=== PATIENT | female | born 1935 | race Caucasian/White ===

== ENCOUNTER 2018-11-06 09:48 | Outpatient (CLI) | payer OTHER | END 2018-11-06 09:57 | disposition home or self-care (01) | LOC: TOM 09:48 | DX: M25.512 Pain in left shoulder (principal); M79.641 Pain in right hand ==

== ENCOUNTER 2019-08-13 09:00 | Day surgery (SDC) | payer OTHER | END 2019-08-13 15:05 | disposition home or self-care (01) | LOC: AMB-ENDOS 09:00 | DX: C20 Malignant neoplasm of rectum (principal); K64.1 Second degree hemorrhoids ==

== ENCOUNTER 2021-12-18 10:42 | Outpatient (CLI) | payer OTHER | END 2021-12-18 10:49 | disposition home or self-care (01) | LOC: RAD 10:42 | PROVIDERS: ATTEND General Practice | DX: J43.9 Emphysema, unspecified (principal); I70.0 Atherosclerosis of aorta; I51.7 Cardiomegaly ==

== ENCOUNTER 2022-01-08 12:11 | Outpatient (CLI) | payer OTHER ==
[2022-01-17] MEDS ORDERED: ATORVASTATIN CA10 MG PO (19:35)
[2022-01-17] MEDS ORDERED: VERELAN120 MG PO (19:35)
[2022-01-17] MEDS ORDERED: OMEGA 3 1,0001 EACH PO (19:35)
[2022-01-17] MEDS ORDERED: COZAAR25 MG PO (19:35)
[2022-01-17] MEDS ORDERED: ALENDRONATE SODI5 MG PO (19:36)
== END 2022-01-08 12:23 | disposition home or self-care (01) ==
LOC: NUCLEAR 12:11
PROVIDERS: ATTEND General Practice
DX: M81.0 Age-related osteoporosis without current pathological fracture (principal)

== ENCOUNTER → 2022-01-17 | Emergency (ER) | payer OTHER ==
[~2022-01-17] VITALS: Ht 152.4 cm; Wt 60.8 kg
[~2022-01-17] MED LIST: ALENDRONATE SODI5 MG PO; ATORVASTATIN CA10 MG PO; COZAAR25 MG PO; OMEGA 3 1,0001 EACH PO; VERELAN120 MG PO
== END | disposition home or self-care (01) ==
LOC: ER 18:10
DX: R47.81 Slurred speech (principal); I10 Essential (primary) hypertension; Z88.6 Allergy status to analgesic agent; Z88.0 Allergy status to penicillin

== ENCOUNTER 2022-02-11 11:01 | Outpatient (CLI) | payer OTHER | END 2022-02-11 11:03 | disposition home or self-care (01) | LOC: SONOGRAMA 11:01 | DX: D44.0 Neoplasm of uncertain behavior of thyroid gland (principal); N00.0 Acute nephritic syndrome with minor glomerular abnormality ==